=== PATIENT | male | born 1950 | race Caucasian/White ===

== ENCOUNTER 2023-11-24 16:28 | Inpatient (IN) | payer MEDICARE ==
[~2023-11-24] VITALS: Ht 188 cm; Wt 107.0 kg
[2023-11-24 17:13] LABS: BASOPHILS % (AUTO) 1.1 % (0.0-2.0); EOSINOPHILS # (AUTO) 0.2 K/uL (0.0-0.7); EOSINOPHILS % (AUTO) 6.7 % (0.0-7.0); HEMATOCRIT 40.4 % (36.7-47.1); HEMOGLOBIN 13.5 g/dL (12.5-16.3); LYMPHOCYTES # (AUTO) 0.9 K/uL (0.8-4.8); MEAN CORPUSCULAR HEMOGLOBIN 30.9 uug (23.8-33.4); MEAN CORPUSCULAR HGB CONC 34 g/dL (32.5-36.3); MEAN CORPUSCULAR VOLUME 92.2 fL (73.0-96.2); MONOCYTES # (AUTO) 0.4 K/uL (0.1-1.30); MONOCYTES % (AUTO) 10.3 % (0.0-11.0); NEUTROPHILS # (AUTO) 2.1 K/uL (1.8-8.9); NEUTROPHILS % (AUTO) 56.9 % (38.5-71.5); PLATELET COUNT (AUTO) 139 K/uL (152-348); RED BLOOD CELL COUNT(AUTO) 4.38 MIL/uL (4.06-5.63); RED CELL DISTRIBUTION WIDTH 14.3 % (12.1-16.2); WHITE BLOOD COUNT (AUTO) 3.6 K/uL (3.6-10.2)
[2023-11-24 17:30] LABS: DIFFERENTIAL COMMENT 1
[2023-11-24 17:44] LABS: ALANINE AMINOTRANSFERASE 21 U/L (16-63); ALBUMIN 3.4 g/dL (3.4-5.0); ALKALINE PHOSPHATASE 123 U/L (50-136); ASPARTATE AMINOTRANSFERASE 24 U/L (15-37); BILIRUBIN,TOTAL 0.5 mg/dL (0.2-1.0); CALCIUM 8.3 mg/dL (8.5-10.1); CARBON DIOXIDE 31 mmol/L (21-32); CHLORIDE 107 mmol/L (98-107); CREATININE 1.1 mg/dL (0.6-1.3); GLUCOSE 97 mg/dL (74-106); POTASSIUM 4.1 mmol/L (3.5-5.1); SODIUM SERUM 143 mmol/L (136-145); TOTAL PROTEIN, SERUM 6.8 g/dL (6.4-8.2); UREA NITROGEN, BLOOD 22 mg/dL (7-18); VALPROIC ACID 52 ug/mL (50-100)
[2023-11-24] MEDS ORDERED: POTA10CA43 PO (17:47)
[2023-11-24] MEDS ORDERED: ATOR80TA PO (17:47)
[2023-11-24] MEDS ORDERED: ACET-3117 PO (17:47)
[2023-11-24] MEDS ORDERED: CBD PO (17:47)
[2023-11-24] MEDS ORDERED: DICL50TA9 PO (17:47)
[2023-11-24] MEDS ORDERED: CLOP75TA33 PO (17:47)
[2023-11-24] MEDS ORDERED: GABA-536 PO (17:47)
[2023-11-24] MEDS ORDERED: C ABH TP (17:47)
[2023-11-24] MEDS ORDERED: ASPI81TA31 PO (17:47)
[2023-11-24] MEDS ORDERED: DONE10TA44 PO (17:47)
[2023-11-24] MEDS ORDERED: ASCO500C18 PO (17:47)
[2023-11-24] MEDS ORDERED: CHOL10005 PO (17:47)
[2023-11-24] MEDS ORDERED: MELA3CAP2 PO (17:47)
[2023-11-24] MEDS ORDERED: [UNRECOGNIZED DRUG - OTHER] EACHEYE (17:47)
[2023-11-24] MEDS ORDERED: NIFE30TA91 PO (17:47)
[2023-11-24] MEDS ORDERED: QUET25TA PO (17:47)
[2023-11-24] MEDS ORDERED: VALP250S3 PO (17:47)
[2023-11-24] MEDS ORDERED: FURO20TA4 PO (17:47)
[2023-11-24] MEDS ORDERED: ESCI20TA PO (17:47)
[2023-11-24] MEDS ORDERED: HYDR-4075 PO (17:47)
[2023-11-24] MEDS ORDERED: FAMO-132 PO (17:47)
[2023-11-24] MEDS ORDERED: ARNICA GEL TP (17:47)
[2023-11-24] MEDS ORDERED: ACET1TAB23 PO (17:47)
[2023-11-24] MEDS ORDERED: LORA10TA60 PO (17:47)
[2023-11-24] MEDS ORDERED: [UNRECOGNIZED DRUG - OTHER] PO (17:47)
[2023-11-24] MEDS ORDERED: QUET50TA PO (17:47)
[2023-11-24] MEDS ORDERED: QUET100T PO (17:47)
[2023-11-24] MEDS ORDERED: CLOT15CR27 TP (17:47)
[2023-11-24] MEDS ORDERED: ACET-2812 PO (17:47)
[2023-11-24] MEDS ORDERED: RISP0.5T65 PO (17:49)
[2023-11-24] MEDS ORDERED: LORA0.5T48 PO (17:49)
[2023-11-24] MEDS ORDERED: LOPE2TAB25 PO (17:49)
[2023-11-24 17:53] LABS: THYROID STIMULATING HORMONE 1.143 mIU/mL (0.358-3.740)
[2023-11-24] MEDS ORDERED: LORAZEPAM 2 MG/1 ML VIAL ONE (21:36)
[2023-11-24] MEDS: LORAZEPAM 2 MG/1 ML VIAL IM ONE (21:45)
[2023-11-24 22:15] VITALS: BP 123/75; TEMP 97.5; O2SAT 98
[2023-11-24] MEDS ORDERED: MAG HYDROX/AL HYDROX/SIMETH 30 ML LIQUID UDC PO PRN (22:45)
[2023-11-24] MEDS ORDERED: MAGNESIUM HYDROXIDE 30 ML LIQUID UDC PO PRN (22:45)
[2023-11-24] MEDS: BLOOD SUGAR DIAGNOSTIC 1 EACH STRIP VI ONE (23:01)
[2023-11-24] MEDS: LORAZEPAM 1 MG TABLET PO PRN (23:01)
[2023-11-25] MEDS: GABAPENTIN 100 MG CAPSULE PO SCH (09:38)
[2023-11-25] MEDS: DIVALPROEX SPRINKLE 125 MG CAP.SPRINK PO SCH (09:38)
[2023-11-25] MEDS: QUETIAPINE FUMARATE 25 MG TABLET PO SCH (09:38)
[2023-11-25] MEDS ORDERED: ASCO-373 PO (11:27)
[2023-11-25] MEDS ORDERED: FURO-152 PO (11:32)
[2023-11-25] MEDS ORDERED: FURO40TA5 PO (11:33)
[2023-11-25] MEDS ORDERED: LORA-114 PO (11:35)
[2023-11-25] MEDS ORDERED: NIFE-35 PO (11:36)
[2023-11-25] MEDS ORDERED: PROP10DR10 EACHEYE (11:37)
[2023-11-25] MEDS ORDERED: THC PO ×2 (11:47→11:50)
[2023-11-25] MEDS ORDERED: CBD PO ×2 (11:47→11:50)
[2023-11-25] MEDS ORDERED: GUM PO (11:47)
[2023-11-25] MEDS ORDERED: ACETAMINOPHEN/CODEINE 300-30 MG TABLET PO PRN (15:45)
[2023-11-25] MEDS ORDERED: FUROSEMIDE 40 MG TABLET PO SCH (15:58)
[2023-11-25 16:03] VITALS: BP 94/71; TEMP 98.1; O2SAT 97
[2023-11-25] MEDS: FAMOTIDINE 20 MG TABLET PO SCH (17:00)
[2023-11-25 20:00] VITALS: BP 166/55; TEMP 97.3; O2SAT 98
[2023-11-25] MEDS: ATORVASTATIN 40 MG TABLET PO SCH (22:25)
[2023-11-25] MEDS: ZOLPIDEM 5 MG TABLET PO PRN (22:25)
[2023-11-26 07:50] VITALS: BP 169/83; TEMP 98; O2SAT 99
[2023-11-26] MEDS: FUROSEMIDE 20 MG TABLET PO SCH (08:23)
[2023-11-26] MEDS: ASPIRIN 81 MG TAB.CHEW PO SCH (08:23)
[2023-11-26] MEDS: CLOPIDOGREL 75 MG TABLET PO SCH (08:23)
[2023-11-26] MEDS: NIFEdipine XL 30 MG TABSR PO SCH (08:24)
[2023-11-26 15:13] VITALS: BP 127/70; TEMP 97.4; O2SAT 98
[2023-11-26 20:00] VITALS: BP 137/68; TEMP 97.6; O2SAT 99
[2023-11-27 07:57] VITALS: BP 121/57; TEMP 98; O2SAT 96
[2023-11-27] MEDS: FUROSEMIDE 40 MG TABLET PO SCH (09:23)
[2023-11-27] MEDS: QUETIAPINE FUMARATE 25 MG TABLET PO SCH (09:26)
[2023-11-27 15:07] VITALS: BP 123/73; TEMP 98; O2SAT 98
[2023-11-27 20:11] VITALS: BP 116/56; TEMP 98.2; O2SAT 96
[2023-11-28 08:18] VITALS: BP 109/55; TEMP 98.2; O2SAT 96
[2023-11-28] MEDS ORDERED: GABAPENTIN 100 MG CAPSULE PO SCH (09:00)
[2023-11-28] MEDS: GABAPENTIN 100 MG CAPSULE PO ONE (09:43)
[2023-11-28] MEDS: QUETIAPINE FUMARATE 25 MG TABLET PO SCH ×2 (09:43→20:18)
[2023-11-28] MEDS: HALOPERIDOL LACTATE 5 MG/1 ML VIAL IM ONE (14:34)
[2023-11-28] MEDS: LORAZEPAM 2 MG/1 ML VIAL IM ONE (14:35)
[2023-11-28] MEDS: diphenhydrAMINE 50 MG/1 ML VIAL IM ONE (14:35)
[2023-11-28 15:34] VITALS: BP 115/54; TEMP 98.2; O2SAT 98
[2023-11-28 19:56] VITALS: BP 126/55; TEMP 98.1; O2SAT 96
[2023-11-29 08:20] VITALS: BP 122/77; TEMP 98.4; O2SAT 98
[2023-11-29] MEDS: GABAPENTIN 100 MG CAPSULE PO SCH (09:00)
[2023-11-29 15:31] VITALS: BP 120/80; TEMP 98; O2SAT 98
[2023-11-29] MEDS: DIVALPROEX SPRINKLE 125 MG CAP.SPRINK PO SCH (17:43)
[2023-11-29] MEDS: QUETIAPINE FUMARATE 25 MG TABLET PO SCH (17:44)
[2023-11-29 20:02] VITALS: BP 118/76; TEMP 98.2; O2SAT 96
[2023-11-30] MEDS: ACETAMINOPHEN 325 MG TABLET PO PRN (01:24)
[2023-11-30] MEDS: NEPRO (VANILLA) 237 ML CAN PO SCH (09:00)
[2023-11-30 16:20] VITALS: BP 105/72; TEMP 97.7; O2SAT 97
[2023-11-30] MEDS: REMEDY ESSENTIAL ZINC PASTE 113 GM TOP SCH (21:23)
[2023-12-01 07:34] VITALS: BP 143/69; TEMP 97.9; O2SAT 97
[2023-12-01 16:11] VITALS: BP 121/56; TEMP 98; O2SAT 97
[2023-12-01] MEDS: QUETIAPINE FUMARATE 25 MG TABLET PO SCH ×2 (16:36→20:32)
[2023-12-01 19:42] VITALS: BP 132/60; TEMP 98.1; O2SAT 96
[2023-12-02] MEDS: risperiDONE 1 MG TABLET PO SCH (09:47)
[2023-12-02 16:09] VITALS: BP 147/81; O2SAT 96
[2023-12-02 19:59] VITALS: BP 136/76; O2SAT 95
[2023-12-03 09:35] VITALS: BP 126/68; TEMP 98; O2SAT 96
[2023-12-03] MEDS: GABAPENTIN 100 MG CAPSULE PO SCH (13:55)
[2023-12-03 15:11] VITALS: BP 121/74; TEMP 98; O2SAT 100
[2023-12-03] MEDS: PROTEIN SUPPLEMENT (PROSTAT) 30 ML LIQUID PO SCH (16:01)
[2023-12-03 19:57] VITALS: BP 130/66; TEMP 98.1; O2SAT 98
[2023-12-03] MEDS: risperiDONE 1 MG TABLET PO SCH (21:07)
[2023-12-04 07:30] VITALS: BP 133/90; TEMP 98.2; O2SAT 98
[2023-12-04 10:39] LABS: BASOPHILS # (AUTO) 0.1 K/UL (0.0-0.2); BASOPHILS % (AUTO) 1.5 % (0.0-2.0); EOSINOPHILS # (AUTO) 0.2 K/uL (0.0-0.7); HEMATOCRIT 43.1 % (36.7-47.1); HEMOGLOBIN 14.4 g/dL (12.5-16.3); LYMPHOCYTES # (AUTO) 0.9 K/uL (0.8-4.8); LYMPHOCYTES % (AUTO) 23.7 % (20.5-51.5); MEAN CORPUSCULAR HEMOGLOBIN 30.7 uug (23.8-33.4); MEAN CORPUSCULAR HGB CONC 33 g/dL (32.5-36.3); MONOCYTES # (AUTO) 0.5 K/uL (0.1-1.30); MONOCYTES % (AUTO) 12.8 % (0.0-11.0); NEUTROPHILS # (AUTO) 2.1 K/uL (1.8-8.9); PLATELET COUNT (AUTO) 143 K/uL (152-348); RED BLOOD CELL COUNT(AUTO) 4.69 MIL/uL (4.06-5.63); WHITE BLOOD COUNT (AUTO) 3.6 K/uL (3.6-10.2)
[2023-12-04 11:06] LABS: DIFFERENTIAL COMMENT 1
[2023-12-04 11:14] LABS: CALCIUM 8.8 mg/dL (8.5-10.1); CARBON DIOXIDE 25 mmol/L (21-32); CHLORIDE 100 mmol/L (98-107); CREATININE 0.9 mg/dL (0.6-1.3); GLUCOSE 95 mg/dL (74-106); MAGNESIUM 2.2 mg/dL (1.8-2.4); PHOSPHOROUS 3.2 mg/dL (2.5-4.9); POTASSIUM 4.1 mmol/L (3.5-5.1); SODIUM SERUM 138 mmol/L (136-145); UREA NITROGEN, BLOOD 20 mg/dL (7-18)
[2023-12-04 15:34] VITALS: BP 118/78; TEMP 98; O2SAT 98
[2023-12-04 20:01] VITALS: BP 121/79; TEMP 98.2; O2SAT 95
[2023-12-05 07:53] VITALS: BP 139/69; TEMP 98.2; O2SAT 98
[2023-12-05 15:32] VITALS: BP 135/70; TEMP 98; O2SAT 97
[2023-12-05 20:00] VITALS: BP 139/86; TEMP 98.1; O2SAT 94
[2023-12-05] MEDS: DIVALPROEX SPRINKLE 125 MG CAP.SPRINK PO SCH (20:44)
[2023-12-06 08:11] VITALS: BP 130/82; TEMP 98; O2SAT 96
[2023-12-06] MEDS ORDERED: GABAPENTIN 100 MG CAPSULE PO SCH (13:00)
[2023-12-06] MEDS: GABAPENTIN 300 MG CAPSULE PO SCH (13:36)
[2023-12-06 15:17] VITALS: BP 129/72; TEMP 98; O2SAT 98
[2023-12-06 20:00] VITALS: BP 128/68; TEMP 97.6; O2SAT 98
[2023-12-07 08:14] VITALS: BP 127/56; TEMP 98.1; O2SAT 96
[2023-12-07 16:14] VITALS: BP 101/78; TEMP 98; O2SAT 96
[2023-12-07 20:00] VITALS: BP 126/77; TEMP 97.8; O2SAT 90
[2023-12-08 08:10] VITALS: BP 133/72; TEMP 98.2; O2SAT 96
[2023-12-08 16:45] VITALS: BP 98/54; TEMP 98.6; O2SAT 97
[2023-12-08 20:00] VITALS: BP 118/59; TEMP 98.2; O2SAT 99
[2023-12-09 07:46] VITALS: BP 123/65; TEMP 98.1; O2SAT 97
[2023-12-09 16:12] VITALS: BP 121/80; TEMP 98.5; O2SAT 97
[2023-12-09 20:00] VITALS: BP 118/68; TEMP 98.3; O2SAT 96
[2023-12-10 08:12] VITALS: BP 143/88; TEMP 97.9; O2SAT 94
[2023-12-10 09:00] VITALS: BP 143/88
[2023-12-10 10:52] LABS: BASOPHILS % (AUTO) 0.3 % (0.0-2.0); EOSINOPHILS % (AUTO) 0.2 % (0.0-7.0); HEMATOCRIT 41.2 % (36.7-47.1); HEMOGLOBIN 14.2 g/dL (12.5-16.3); LYMPHOCYTES # (AUTO) 0.6 K/uL (0.8-4.8); LYMPHOCYTES % (AUTO) 10.5 % (20.5-51.5); MEAN CORPUSCULAR HEMOGLOBIN 31.3 uug (23.8-33.4); MEAN CORPUSCULAR HGB CONC 35 g/dL (32.5-36.3); MEAN CORPUSCULAR VOLUME 90.8 fL (73.0-96.2); MONOCYTES # (AUTO) 0.7 K/uL (0.1-1.30); PLATELET COUNT (AUTO) 148 K/uL (152-348); RED BLOOD CELL COUNT(AUTO) 4.54 MIL/uL (4.06-5.63); RED CELL DISTRIBUTION WIDTH 14.1 % (12.1-16.2); WHITE BLOOD COUNT (AUTO) 5.3 K/uL (3.6-10.2)
[2023-12-10 11:14] LABS: CALCIUM 8.6 mg/dL (8.5-10.1); CARBON DIOXIDE 27 mmol/L (21-32); CHLORIDE 103 mmol/L (98-107); CREATININE 1.1 mg/dL (0.6-1.3); GLUCOSE 118 mg/dL (74-106); MAGNESIUM 1.8 mg/dL (1.8-2.4); PHOSPHOROUS 3.6 mg/dL (2.5-4.9); POTASSIUM 3.7 mmol/L (3.5-5.1); SODIUM SERUM 141 mmol/L (136-145); UREA NITROGEN, BLOOD 20 mg/dL (7-18)
[2023-12-10 11:43] LABS: DIFFERENTIAL COMMENT 1
[2023-12-10] MEDS ORDERED: ZOLP5TAB8 PO (15:29)
[2023-12-10] MEDS ORDERED: DIVA125C2 PO (15:30)
[2023-12-10] MEDS ORDERED: NUT.237L67 PO (15:32)
[2023-12-10] MEDS ORDERED: RISP1TAB7 PO ×2 (15:33→15:34)
[2023-12-10] MEDS ORDERED: PROSTAT PO (15:33)
== END 2023-12-10 14:00 | DRG 885 ==
LOC: ER 16:30 → GPS 22:07
PROVIDERS: ADMIT Psychiatry & Neurology Psychiatry; ATTEND Internal Medicine
DX: F29 Unspecified psychosis not due to a substance or known physiological condition (principal); F02.811 Dementia in other diseases classified elsewhere, unspecified severity, with agitation; G30.9 Alzheimer's disease, unspecified; Z91.81 History of falling; E78.5 Hyperlipidemia, unspecified; Z79.82 Long term (current) use of aspirin; I25.10 Atherosclerotic heart disease of native coronary artery without angina pectoris; I10 Essential (primary) hypertension; E66.9 Obesity, unspecified; Z68.30 Body mass index [BMI] 30.0-30.9, adult; R32 Unspecified urinary incontinence; R94.31 Abnormal electrocardiogram [ECG] [EKG]
CPT/HCPCS: 36415; 71045; 73130; 80164; 83735; 84100; 84443; 84484; 85025; 93005; J1200; J1630; J2060

== ENCOUNTER 2023-12-10 13:51 | Inpatient (IN) | payer MEDICARE ==
[2023-12-10] VITALS (10 sets, daily range): BP systolic 120–145; BP diastolic 61–80; TEMP 97.6–102.8; O2SAT 93–98
[~2023-12-10] VITALS: Ht 188 cm; Wt 107.0 kg
[~2023-12-10 13:51] MED LIST: ACET-2812 PO; ACET-3117 PO; ACET1TAB23 PO; ARNICA GEL TP; ASCO-373 PO; ASPI81TA31 PO; ATOR80TA PO; C ABH TP; CBD PO; CHOL10005 PO; CLOP75TA33 PO; CLOT15CR27 TP; DICL50TA9 PO; FAMO-132 PO; FURO-152 PO; FURO40TA5 PO; GUM PO; HYDR-4075 PO; LOPE2TAB25 PO; LORA-114 PO; NIFE-35 PO; POTA10CA43 PO; PROP10DR10 EACHEYE; THC PO; [UNRECOGNIZED DRUG - OTHER] PO
[2023-12-10] MEDS ORDERED: ZOLP5TAB8 PO (15:29)
[2023-12-10] MEDS ORDERED: DIVA125C2 PO (15:30)
[2023-12-10] MEDS ORDERED: ONDANSETRON 4 MG/2 ML VIAL IV PRN (15:30)
[2023-12-10] MEDS ORDERED: ACETAMINOPHEN 325 MG TABLET PO PRN (15:30)
[2023-12-10] MEDS ORDERED: NUT.237L67 PO (15:32)
[2023-12-10] MEDS ORDERED: PROSTAT PO (15:33)
[2023-12-10] MEDS ORDERED: RISP1TAB7 PO ×2 (15:33→15:34)
[2023-12-10] MEDS: IV NS 1000 ML 1,000 ML IV PRN (17:18)
[2023-12-10] MEDS: IPRATROPIUM BROMIDE 0.5 MG/2.5 ML NEBU NEB SCH (19:50)
[2023-12-10] MEDS: ALBUTEROL SULFATE 2.5 MG/ 0.5 ML NEBU NEB SCH (19:50)
[2023-12-10] MEDS ORDERED: AZITHROMYCIN 500MG/ D5W 250ML IVPB **ER PYXIS ONLY IV ONE (20:40)
[2023-12-10] MEDS: AZITHROMYCIN IV 500 MG in IV DEXTROSE 5% 250 ML IV SCH (20:51)
[2023-12-10] MEDS: ACETAMINOPHEN 650 MG SUPP.RECT RC PRN (21:01)
[2023-12-10 21:50] LABS: *BILIRUBIN,URIN NEGATIVE (NEGATIVE); *BLOOD, URINE NEGATIVE (NEGATIVE); *CLARITY,URINE CLEAR (CLEAR); *COLOR,URINE YELLOW (YELLOW); *KETONES,URINE NEGATIVE (NEGATIVE); *PROTEIN,URINE NEGATIVE (NEGATIVE); LEUKOCYTE ESTERASE ,URINE NEGATIVE (NEGATIVE); NITRITE, URINE NEGATIVE (NEGATIVE); UGLUCOSE NEGATIVE (NEGATIVE)
[2023-12-10] MEDS: IV NS 1000 ML 1,000 ML IV ONE (22:12)
[2023-12-10] MEDS ORDERED: CEFTRIAXONE /D5W 50ML IVPB **ER PYXIS IV ONE (22:17)
[2023-12-10] MEDS: CEFTRIAXONE 1 G in IV DEXTROSE 5% 50 ML IV SCH (22:23)
[2023-12-10] MEDS: ACETYLCYSTEINE 10% 4ML VIAL NEB SCH (23:22)
[2023-12-11] VITALS (20 sets, daily range): BP systolic 121–147; BP diastolic 64–76; TEMP 98–100.3; O2SAT 18–100
[2023-12-11] MEDS: LORAZEPAM 2 MG/1 ML VIAL IV PRN (00:01)
[2023-12-11 07:11] LABS: BASOPHILS % (AUTO) 0.2 % (0.0-2.0); HEMATOCRIT 39.7 % (36.7-47.1); HEMOGLOBIN 13.6 g/dL (12.5-16.3); LYMPHOCYTES # (AUTO) 0.4 K/uL (0.8-4.8); LYMPHOCYTES % (AUTO) 8.6 % (20.5-51.5); MEAN CORPUSCULAR HEMOGLOBIN 31.4 uug (23.8-33.4); MEAN CORPUSCULAR HGB CONC 34 g/dL (32.5-36.3); MEAN CORPUSCULAR VOLUME 91.8 fL (73.0-96.2); MONOCYTES # (AUTO) 0.6 K/uL (0.1-1.30); MONOCYTES % (AUTO) 12.9 % (0.0-11.0); NEUTROPHILS % (AUTO) 78.3 % (38.5-71.5); PLATELET COUNT (AUTO) 127 K/uL (152-348); RED BLOOD CELL COUNT(AUTO) 4.32 MIL/uL (4.06-5.63); RED CELL DISTRIBUTION WIDTH 14.3 % (12.1-16.2)
[2023-12-11 07:26] LABS: DIFFERENTIAL COMMENT 1
[2023-12-11 07:32] LABS: CALCIUM 8.5 mg/dL (8.5-10.1); CARBON DIOXIDE 27 mmol/L (21-32); CHLORIDE 105 mmol/L (98-107); CHOLESTEROL 103 mg/dL (<200); CREATININE 0.9 mg/dL (0.6-1.3); GLUCOSE 113 mg/dL (74-106); HDL CHOLESTEROL 40 mg/dL (40-60); MAGNESIUM 2.1 mg/dL (1.8-2.4); PHOSPHOROUS 2.2 mg/dL (2.5-4.9); POTASSIUM 3.6 mmol/L (3.5-5.1); SODIUM SERUM 142 mmol/L (136-145); TRIGLYCERIDES 49 MG/DL (30-150); UREA NITROGEN, BLOOD 17 mg/dL (7-18)
[2023-12-11] MEDS: CEFEPIME HCL 1 G in IV DEXTROSE 5% 50 ML IV SCH (13:04)
[2023-12-11] MEDS: SODIUM PHOSPHATE MM 15 MMOL in IV NORMAL SALINE 250 ML IV ONE (16:20)
[2023-12-11] MEDS ORDERED: PIPERACILLIN/TAZOBACTAM/D5W 50 ML IV ONE (21:26)
[2023-12-11] MEDS: PIPERACILLIN SODIUM/TAZOBACTAM 3.375 G in IV DEXTROSE 5% 50 ML IV SCH (21:34)
[2023-12-12] VITALS (20 sets, daily range): BP systolic 120–160; BP diastolic 58–75; TEMP 98.4–99.2; O2SAT 95–100
[2023-12-12] MEDS ORDERED: PIPERACILLIN SODIUM/TAZO 3.375 GM VIAL ONE (05:18)
[2023-12-12] MEDS: PIPERACILLIN SODIUM/TAZOBACTAM 3.375 G in IV DEXTROSE 5% 50 ML IV SCH (05:50)
[2023-12-12 06:50] LABS: BASOPHILS % (AUTO) 0.4 % (0.0-2.0); EOSINOPHILS % (AUTO) 0.5 % (0.0-7.0); HEMATOCRIT 34.6 % (36.7-47.1); HEMOGLOBIN 11.9 g/dL (12.5-16.3); LYMPHOCYTES # (AUTO) 0.4 K/uL (0.8-4.8); LYMPHOCYTES % (AUTO) 9.7 % (20.5-51.5); MEAN CORPUSCULAR HEMOGLOBIN 31.5 uug (23.8-33.4); MEAN CORPUSCULAR HGB CONC 34 g/dL (32.5-36.3); MEAN CORPUSCULAR VOLUME 91.7 fL (73.0-96.2); MONOCYTES # (AUTO) 0.6 K/uL (0.1-1.30); MONOCYTES % (AUTO) 14.8 % (0.0-11.0); NEUTROPHILS # (AUTO) 3.2 K/uL (1.8-8.9); NEUTROPHILS % (AUTO) 74.6 % (38.5-71.5); PLATELET COUNT (AUTO) 130 K/uL (152-348); RED BLOOD CELL COUNT(AUTO) 3.78 MIL/uL (4.06-5.63); RED CELL DISTRIBUTION WIDTH 14.2 % (12.1-16.2); WHITE BLOOD COUNT (AUTO) 4.3 K/uL (3.6-10.2)
[2023-12-12 06:58] LABS: CALCIUM 8.4 mg/dL (8.5-10.1); CARBON DIOXIDE 29 mmol/L (21-32); CHLORIDE 109 mmol/L (98-107); CREATININE 0.9 mg/dL (0.6-1.3); GLUCOSE 105 mg/dL (74-106); MAGNESIUM 2.1 mg/dL (1.8-2.4); PHOSPHOROUS 3.1 mg/dL (2.5-4.9); POTASSIUM 3.6 mmol/L (3.5-5.1); SODIUM SERUM 146 mmol/L (136-145); UREA NITROGEN, BLOOD 15 mg/dL (7-18)
[2023-12-12 07:03] LABS: DIFFERENTIAL COMMENT 1
[2023-12-12] MEDS: LORAZEPAM 1 MG TABLET PO PRN (13:35)
[2023-12-12] MEDS: PIPERACILLIN SODIUM/TAZOBACTAM 3.375 G in IV DEXTROSE 5% 100 ML IV SCH (15:22)
[2023-12-12] MEDS: DIVALPROEX SPRINKLE 125 MG CAP.SPRINK PO SCH (20:19)
[2023-12-13] VITALS (10 sets, daily range): BP systolic 126–148; BP diastolic 56–65; TEMP 97.6–99; O2SAT 93–99
[2023-12-13 07:00] LABS: BASOPHILS % (AUTO) 0.5 % (0.0-2.0); EOSINOPHILS # (AUTO) 0.2 K/uL (0.0-0.7); EOSINOPHILS % (AUTO) 4.1 % (0.0-7.0); HEMATOCRIT 36.1 % (36.7-47.1); HEMOGLOBIN 12.5 g/dL (12.5-16.3); LYMPHOCYTES # (AUTO) 0.6 K/uL (0.8-4.8); LYMPHOCYTES % (AUTO) 12.4 % (20.5-51.5); MEAN CORPUSCULAR HEMOGLOBIN 31.3 uug (23.8-33.4); MEAN CORPUSCULAR HGB CONC 35 g/dL (32.5-36.3); MEAN CORPUSCULAR VOLUME 90.4 fL (73.0-96.2); MONOCYTES # (AUTO) 0.6 K/uL (0.1-1.30); MONOCYTES % (AUTO) 12.2 % (0.0-11.0); NEUTROPHILS # (AUTO) 3.4 K/uL (1.8-8.9); NEUTROPHILS % (AUTO) 70.8 % (38.5-71.5); PLATELET COUNT (AUTO) 158 K/uL (152-348); RED BLOOD CELL COUNT(AUTO) 3.99 MIL/uL (4.06-5.63); RED CELL DISTRIBUTION WIDTH 14.1 % (12.1-16.2); WHITE BLOOD COUNT (AUTO) 4.8 K/uL (3.6-10.2)
[2023-12-13 07:11] LABS: DIFFERENTIAL COMMENT 1
[2023-12-13 07:17] LABS: CALCIUM 8.3 mg/dL (8.5-10.1); CARBON DIOXIDE 26 mmol/L (21-32); CHLORIDE 109 mmol/L (98-107); CREATININE 0.8 mg/dL (0.6-1.3); GLUCOSE 96 mg/dL (74-106); PHOSPHOROUS 2.6 mg/dL (2.5-4.9); POTASSIUM 3.2 mmol/L (3.5-5.1); SODIUM SERUM 145 mmol/L (136-145); UREA NITROGEN, BLOOD 15 mg/dL (7-18)
[2023-12-13] MEDS: CLONAZEPAM 0.5 MG TABLET PO SCH (08:45)
[2023-12-13] MEDS ORDERED: POTASSIUM CHLORIDE 20 MEQ TAB.PRT.SR PO ONE (09:30)
[2023-12-13] MEDS: POTASSIUM CHLORIDE 20 MEQ POWDER PACKET PO ONE (10:06)
[2023-12-13] MEDS ORDERED: REMEDY ESSENTIAL ZINC PASTE 113 GM TOP PRN (12:00)
[2023-12-13] MEDS: REMEDY ESSENTIAL ZINC PASTE 113 GM TOP SCH (20:24)
[2023-12-13] MEDS: TAMSULOSIN HCL 0.4 MG CAP.SR.24H PO SCH (22:47)
[2023-12-14] VITALS (17 sets, daily range): BP systolic 127–146; BP diastolic 56–73; TEMP 98.3–98.7; O2SAT 96–100
[2023-12-14 08:22] LABS: BASOPHILS % (AUTO) 0.5 % (0.0-2.0); EOSINOPHILS # (AUTO) 0.4 K/uL (0.0-0.7); EOSINOPHILS % (AUTO) 7.5 % (0.0-7.0); HEMATOCRIT 36.8 % (36.7-47.1); HEMOGLOBIN 12.6 g/dL (12.5-16.3); LYMPHOCYTES # (AUTO) 0.7 K/uL (0.8-4.8); LYMPHOCYTES % (AUTO) 12.9 % (20.5-51.5); MEAN CORPUSCULAR HGB CONC 34 g/dL (32.5-36.3); MEAN CORPUSCULAR VOLUME 90.9 fL (73.0-96.2); MONOCYTES # (AUTO) 0.6 K/uL (0.1-1.30); MONOCYTES % (AUTO) 11.6 % (0.0-11.0); NEUTROPHILS # (AUTO) 3.5 K/uL (1.8-8.9); NEUTROPHILS % (AUTO) 67.5 % (38.5-71.5); PLATELET COUNT (AUTO) 186 K/uL (152-348); RED BLOOD CELL COUNT(AUTO) 4.05 MIL/uL (4.06-5.63); RED CELL DISTRIBUTION WIDTH 13.8 % (12.1-16.2); WHITE BLOOD COUNT (AUTO) 5.1 K/uL (3.6-10.2)
[2023-12-14 08:58] LABS: CALCIUM 8.5 mg/dL (8.5-10.1); CARBON DIOXIDE 28 mmol/L (21-32); CHLORIDE 106 mmol/L (98-107); CREATININE 0.8 mg/dL (0.6-1.3); GLUCOSE 91 mg/dL (74-106); MAGNESIUM 1.9 mg/dL (1.8-2.4); PHOSPHOROUS 3.4 mg/dL (2.5-4.9); POTASSIUM 3.1 mmol/L (3.5-5.1); SODIUM SERUM 142 mmol/L (136-145); UREA NITROGEN, BLOOD 13 mg/dL (7-18)
[2023-12-14 09:02] LABS: DIFFERENTIAL COMMENT 1
[2023-12-14] MEDS: ACETAMINOPHEN 325 MG TABLET PO PRN (13:23)
[2023-12-15] VITALS (12 sets, daily range): BP systolic 101–148; BP diastolic 50–84; TEMP 98.2–99.1; O2SAT 93–100
[2023-12-15] MEDS: POTASSIUM CHLORIDE 20 MEQ POWDER PACKET PO ONE (02:39)
[2023-12-15 10:37] LABS: BASOPHILS # (AUTO) 0.1 K/UL (0.0-0.2); BASOPHILS % (AUTO) 2.7 % (0.0-2.0); EOSINOPHILS # (AUTO) 0.2 K/uL (0.0-0.7); EOSINOPHILS % (AUTO) 5.3 % (0.0-7.0); HEMATOCRIT 37.6 % (36.7-47.1); HEMOGLOBIN 12.8 g/dL (12.5-16.3); LYMPHOCYTES # (AUTO) 0.5 K/uL (0.8-4.8); LYMPHOCYTES % (AUTO) 10.6 % (20.5-51.5); MEAN CORPUSCULAR HEMOGLOBIN 30.7 uug (23.8-33.4); MEAN CORPUSCULAR HGB CONC 34 g/dL (32.5-36.3); MEAN CORPUSCULAR VOLUME 90.1 fL (73.0-96.2); MONOCYTES # (AUTO) 0.6 K/uL (0.1-1.30); MONOCYTES % (AUTO) 12.6 % (0.0-11.0); NEUTROPHILS # (AUTO) 3.2 K/uL (1.8-8.9); NEUTROPHILS % (AUTO) 68.8 % (38.5-71.5); PLATELET COUNT (AUTO) 208 K/uL (152-348); RED BLOOD CELL COUNT(AUTO) 4.17 MIL/uL (4.06-5.63); RED CELL DISTRIBUTION WIDTH 13.8 % (12.1-16.2); WHITE BLOOD COUNT (AUTO) 4.6 K/uL (3.6-10.2)
[2023-12-15 11:10] LABS: CALCIUM 8.6 mg/dL (8.5-10.1); CREATININE 0.7 mg/dL (0.6-1.3); POTASSIUM 3.5 mmol/L (3.5-5.1)
[2023-12-15 11:11] LABS: DIFFERENTIAL COMMENT 1
[2023-12-15] MEDS ORDERED: LIDOCAINE 2% (GLYDO= UROJET) 10 ML JELLY MM PRN (14:15)
[2023-12-15] MEDS: GABAPENTIN 300 MG CAPSULE PO SCH (17:00)
[2023-12-16] VITALS (15 sets, daily range): BP systolic 117–126; BP diastolic 61–85; TEMP 97.9–98.4; O2SAT 93–99
[2023-12-16 07:05] LABS: BASOPHILS % (AUTO) 0.5 % (0.0-2.0); EOSINOPHILS # (AUTO) 0.3 K/uL (0.0-0.7); EOSINOPHILS % (AUTO) 5.4 % (0.0-7.0); HEMATOCRIT 36.4 % (36.7-47.1); HEMOGLOBIN 12.6 g/dL (12.5-16.3); LYMPHOCYTES # (AUTO) 0.7 K/uL (0.8-4.8); LYMPHOCYTES % (AUTO) 11.2 % (20.5-51.5); MEAN CORPUSCULAR HEMOGLOBIN 31.3 uug (23.8-33.4); MEAN CORPUSCULAR HGB CONC 35 g/dL (32.5-36.3); MEAN CORPUSCULAR VOLUME 90.2 fL (73.0-96.2); MONOCYTES # (AUTO) 0.9 K/uL (0.1-1.30); MONOCYTES % (AUTO) 13.8 % (0.0-11.0); NEUTROPHILS # (AUTO) 4.4 K/uL (1.8-8.9); NEUTROPHILS % (AUTO) 69.1 % (38.5-71.5); PLATELET COUNT (AUTO) 217 K/uL (152-348); RED BLOOD CELL COUNT(AUTO) 4.03 MIL/uL (4.06-5.63); WHITE BLOOD COUNT (AUTO) 6.4 K/uL (3.6-10.2)
[2023-12-16 07:15] LABS: CALCIUM 8.7 mg/dL (8.5-10.1); CARBON DIOXIDE 29 mmol/L (21-32); CHLORIDE 103 mmol/L (98-107); CREATININE 0.7 mg/dL (0.6-1.3); GLUCOSE 90 mg/dL (74-106); MAGNESIUM 2.1 mg/dL (1.8-2.4); PHOSPHOROUS 3.1 mg/dL (2.5-4.9); POTASSIUM 3.7 mmol/L (3.5-5.1); SODIUM SERUM 133 mmol/L (136-145); UREA NITROGEN, BLOOD 11 mg/dL (7-18)
[2023-12-16 07:20] LABS: DIFFERENTIAL COMMENT 1
[2023-12-16] MEDS: BETHANECHOL CHLORIDE 25 MG TABLET PO SCH (17:18)
[2023-12-17] VITALS (14 sets, daily range): BP systolic 134–135; BP diastolic 68–69; TEMP 98.2–98.7; O2SAT 97–100
[2023-12-17 06:49] LABS: BASOPHILS % (AUTO) 0.6 % (0.0-2.0); EOSINOPHILS # (AUTO) 0.3 K/uL (0.0-0.7); EOSINOPHILS % (AUTO) 5.8 % (0.0-7.0); HEMATOCRIT 38.8 % (36.7-47.1); HEMOGLOBIN 13.3 g/dL (12.5-16.3); LYMPHOCYTES # (AUTO) 0.7 K/uL (0.8-4.8); LYMPHOCYTES % (AUTO) 12.6 % (20.5-51.5); MEAN CORPUSCULAR HEMOGLOBIN 31.1 uug (23.8-33.4); MEAN CORPUSCULAR HGB CONC 34 g/dL (32.5-36.3); MEAN CORPUSCULAR VOLUME 90.9 fL (73.0-96.2); MONOCYTES # (AUTO) 0.7 K/uL (0.1-1.30); MONOCYTES % (AUTO) 13.3 % (0.0-11.0); NEUTROPHILS # (AUTO) 3.6 K/uL (1.8-8.9); NEUTROPHILS % (AUTO) 67.7 % (38.5-71.5); PLATELET COUNT (AUTO) 247 K/uL (152-348); RED BLOOD CELL COUNT(AUTO) 4.27 MIL/uL (4.06-5.63); RED CELL DISTRIBUTION WIDTH 14.1 % (12.1-16.2); WHITE BLOOD COUNT (AUTO) 5.3 K/uL (3.6-10.2)
[2023-12-17 07:20] LABS: CARBON DIOXIDE 28 mmol/L (21-32); CHLORIDE 105 mmol/L (98-107); CREATININE 0.8 mg/dL (0.6-1.3); GLUCOSE 99 mg/dL (74-106); MAGNESIUM 2.1 mg/dL (1.8-2.4); PHOSPHOROUS 3.3 mg/dL (2.5-4.9); SODIUM SERUM 139 mmol/L (136-145); UREA NITROGEN, BLOOD 11 mg/dL (7-18)
[2023-12-17 07:22] LABS: DIFFERENTIAL COMMENT 1
[2023-12-17] MEDS: CLONAZEPAM 0.5 MG TABLET PO SCH (08:33)
[2023-12-17] MEDS: DIVALPROEX SPRINKLE 125 MG CAP.SPRINK PO SCH (12:27)
[2023-12-18] VITALS (15 sets, daily range): BP systolic 116–125; BP diastolic 67–70; TEMP 97.9–98.7; O2SAT 95–100
[2023-12-19] VITALS (16 sets, daily range): BP systolic 122–149; BP diastolic 44–73; TEMP 98–98.6; O2SAT 95–99
[2023-12-19 07:14] LABS: BASOPHILS % (AUTO) 0.7 % (0.0-2.0); EOSINOPHILS # (AUTO) 0.2 K/uL (0.0-0.7); EOSINOPHILS % (AUTO) 4.4 % (0.0-7.0); HEMATOCRIT 36.6 % (36.7-47.1); HEMOGLOBIN 12.5 g/dL (12.5-16.3); LYMPHOCYTES # (AUTO) 0.7 K/uL (0.8-4.8); LYMPHOCYTES % (AUTO) 15.7 % (20.5-51.5); MEAN CORPUSCULAR HGB CONC 34 g/dL (32.5-36.3); MEAN CORPUSCULAR VOLUME 90.5 fL (73.0-96.2); MONOCYTES # (AUTO) 0.6 K/uL (0.1-1.30); MONOCYTES % (AUTO) 14.4 % (0.0-11.0); NEUTROPHILS # (AUTO) 2.7 K/uL (1.8-8.9); NEUTROPHILS % (AUTO) 64.8 % (38.5-71.5); PLATELET COUNT (AUTO) 239 K/uL (152-348); RED BLOOD CELL COUNT(AUTO) 4.04 MIL/uL (4.06-5.63); WHITE BLOOD COUNT (AUTO) 4.2 K/uL (3.6-10.2)
[2023-12-19 07:32] LABS: CALCIUM 8.7 mg/dL (8.5-10.1); CARBON DIOXIDE 28 mmol/L (21-32); CHLORIDE 104 mmol/L (98-107); CREATININE 0.9 mg/dL (0.6-1.3); GLUCOSE 100 mg/dL (74-106); PHOSPHOROUS 3.3 mg/dL (2.5-4.9); POTASSIUM 3.7 mmol/L (3.5-5.1); SODIUM SERUM 138 mmol/L (136-145); UREA NITROGEN, BLOOD 12 mg/dL (7-18)
[2023-12-19 07:43] LABS: DIFFERENTIAL COMMENT 1
[2023-12-20 05:55] VITALS: O2SAT 95
[2023-12-20 06:00] VITALS: BP 148/64; TEMP 98.4; O2SAT 97
[2023-12-20 06:07] VITALS: O2SAT 97
[2023-12-20 11:52] VITALS: BP 105/53; TEMP 98.8; O2SAT 92
[2023-12-20 12:00] VITALS: O2SAT 95
[2023-12-20 12:10] VITALS: O2SAT 97
== END 2023-12-20 15:45 | DRG 871 ==
LOC: TELE3 13:51 → MEDSURG3 12-12 10:35
PROVIDERS: ADMIT Nurse Practitioner Acute Care; ATTEND Nurse Practitioner Acute Care
DX: A41.9 Sepsis, unspecified organism (principal); G93.41 Metabolic encephalopathy; J69.0 Pneumonitis due to inhalation of food and vomit; J15.69 Pneumonia due to other Gram-negative bacteria; F02.82 Dementia in other diseases classified elsewhere, unspecified severity, with psychotic disturbance; F02.811 Dementia in other diseases classified elsewhere, unspecified severity, with agitation; D68.59 Other primary thrombophilia; F02.818 Dementia in other diseases classified elsewhere, unspecified severity, with other behavioral disturbance; E87.1 Hypo-osmolality and hyponatremia; Z66 Do not resuscitate; E87.6 Hypokalemia; G30.9 Alzheimer's disease, unspecified; E78.5 Hyperlipidemia, unspecified; N40.1 Benign prostatic hyperplasia with lower urinary tract symptoms; R33.8 Other retention of urine; E66.9 Obesity, unspecified; Z68.30 Body mass index [BMI] 30.0-30.9, adult; I25.10 Atherosclerotic heart disease of native coronary artery without angina pectoris; I10 Essential (primary) hypertension; R53.1 Weakness; T50.915A Adverse effect of multiple unspecified drugs, medicaments and biological substances, initial encounter; Y92.9 Unspecified place or not applicable; R79.89 Other specified abnormal findings of blood chemistry; E86.0 Dehydration; Z79.82 Long term (current) use of aspirin; Z79.899 Other long term (current) drug therapy
CPT/HCPCS: 36415; 71045; 80164; 83735; 84100; 85025; 87040; 94640; 94760; A4606; A4663; C1758; G0378; J0456; J0692; J0696; J2060; J2543; J3490; J3590; J7040; J7050